=== PATIENT | male | born 1940 | race Caucasian/White ===

== ENCOUNTER 2019-02-04 09:48 | Day surgery (SDC) | payer MEDICARE, OTHER, SELFPAY ==
[2019-02-04] MEDS: PROPARACAINE 0.5% OPHTH SOL 2 DROPS EYE-OP (10:55)
[2019-02-04] MEDS: CATARACT EYE COMPOUND (10 DROPS/SYRINGE) 3 DROPS EYE-OP ×3 (10:57→11:18)
[2019-02-04 10:59] VITALS: BP 137/85; PULSE 63; RESP 16; TEMP 36.3; O2SAT 100
[2019-02-04 11:00] VITALS: BMI 40.1
--- NOTE | 2019-02-04 11:54 | PM.PREOP ---
Pre-operative Note Interval Note History & Physical reviewed/Exam performed by Physician: No Changes to H&P: No
--- NOTE | 2019-02-04 11:54 | PM.OP.1 ---
Operative Date/Time/Diagnoses Pre-op diagnosis: Nuclear cataract right eye Procedure & Clinicians Procedure: Cataract Surgery Same procedure as scheduled: Yes Surgeon: Chris Chavez Anesthesia Type: MAC +/- and Sedation Operative Notes Procedure in detail: Patient brought to the operating suite. Tetracaine drops placed in the right eye. Patient was prepped and draped in sterile manner. Wire lid speculum was placed in the eye. Betadine drops were placed on the eye. This was irrigated. Lidocaine jelly was placed on the eye. A paracentesis port was created with a side-port blade. 0.1 mL 1% preservative free lidocaine was injected into the anterior chamber. The anterior chamber was deepened with viscoelastic. 2.6 mm keratome was used to create a temporal clear corneal incision. Cystotome and Utrata forceps were used to create continuous tear capsulorrhexis. Balanced salt solution was used to hydro dissect the nucleus. The phacoemulsification handpiece was inserted and the nucleus was removed using the stop and chop technique. The irrigation aspiration handpiece was inserted and the remaining cortex was removed. Anterior chamber was deepened with viscoelastic. An Howard ZCB00 intraocular lens with a power of 19.0 was injected into the capsular bag. Irrigation aspiration handpiece was inserted and the remaining viscoelastic was removed. Incision was hydrated with balanced salt solution and found to be leak free with pressure with Weck-Sera sponges. 0.1 mL Vigamox injected anterior chamber. 0.3 mL Kenalog 10 mg was injected subconjunctivally. Lid speculum was removed. The patient left the operating room in excellent condition. Complications: none Condition: stable Disposition: same day surgery
[2019-02-04] MEDS: CHONDROIDTIN/SOD HYALURONATE 1.05 ML SYRINGE INTRAOCULA (12:19)
[2019-02-04] MEDS: TRIAMCINOLONE 50 MG/5 ML VIAL INJ (12:19)
[2019-02-04] MEDS: LIDOCAINE JELLY 2% 5 ML 1 APPLIC TOP (12:19)
[2019-02-04] MEDS: PHENYLEPHRINE/LIDOCAINE VIAL (OR) 0.2 ML EYE-OP (12:19)
[2019-02-04] MEDS: MOXIFLOXACIN OPHTH DROPS 3 ML BOTTLE 2 DROPS INJ (12:19)
[2019-02-04] MEDS: TETRACAINE 0.5% OPHTH DROPS 4 ML 2 DROPS EYE-OP (12:20)
[2019-02-04] MEDS: BALANCED SALT IRRIG SOLN NO.2 500 ML, EPINEPHrine 1 MG IRR (12:20)
[2019-02-04 12:28] VITALS: BP 121/76; PULSE 54; RESP 15; TEMP 36.4; O2SAT 100
[2019-02-04 12:55] VITALS: BP 132/77; PULSE 62; RESP 17; TEMP 36.4; O2SAT 99
--- NOTE | 2019-02-04 13:11 | SUR.PHASEII ---
INSTRUCTIONS REVIEWED WITH PT WITH VERBALIZED UNDERSTABDING, PT TOLERATING COFFEE, GAIT STEADY
== END 2019-02-04 13:03 ==
LOC: OR 09:51
PROVIDERS: PCP Student in an Organized Health Care Education/Training Program; Visit Provider Ophthalmology
DX: H25.11 Age-related nuclear cataract, right eye (principal); I48.91 Unspecified atrial fibrillation; E78.5 Hyperlipidemia, unspecified
CPT/HCPCS: J0171; J2250; J3010; J3301

== ENCOUNTER 2019-02-25 09:59 | Day surgery (SDC) | payer MEDICARE, OTHER, SELFPAY ==
[2019-02-25] MEDS: PROPARACAINE 0.5% OPHTH SOL 2 DROPS EYE-OP (10:52)
[2019-02-25] MEDS: CATARACT EYE COMPOUND (10 DROPS/SYRINGE) 3 DROPS EYE-OP (10:59)
[2019-02-25 11:02] VITALS: BP 139/88; PULSE 63; RESP 20; TEMP 36.1; O2SAT 98; BMI 40.1
--- NOTE | 2019-02-25 12:10 | PM.PREOP ---
Pre-operative Note Interval Note History & Physical reviewed/Exam performed by Physician: No Changes to H&P: No
--- NOTE | 2019-02-25 12:10 | PM.OP.1 ---
Operative Date/Time/Diagnoses Pre-op diagnosis: Nuclear Cataract Left eye Post-op diagnosis: same Procedure & Clinicians Surgeon: Chris Chavez Anesthesia Type: MAC +/- and Sedation Operative Notes Procedure in detail: Patient brought to the operating suite. Tetracaine drops placed in the left eye. Patient was prepped and draped in sterile manner. Wire lid speculum was placed in the eye. Betadine drops were placed on the eye. This was irrigated. Lidocaine jelly was placed on the eye. A paracentesis port was created with a side-port blade. 0.1 mL 1% preservative free lidocaine was injected into the anterior chamber. The anterior chamber was deepened with viscoelastic. 2.6 mm keratome was used to create a temporal clear corneal incision. Cystotome and Utrata forceps were used to create continuous tear capsulorrhexis. Balanced salt solution was used to hydro dissect the nucleus. The phacoemulsification handpiece was inserted and the nucleus was removed using the stop and chop technique. The irrigation aspiration handpiece was inserted and the remaining cortex was removed. During cleaning of posterior capsule a perfect round hole was created. This did not extend and no vitreous presented. Anterior chamber was deepened with viscoelastic. An Howard ZCB00 intraocular lens with a power of 18.0 was injected into the capsular bag. Irrigation aspiration handpiece was inserted and the remaining viscoelastic was removed. The hole did not extend and there was no vitreous. Incision was hydrated with balanced salt solution and found to be leak free with pressure with Weck-Sera sponges. 0.1 mL Vigamox injected anterior chamber. 0.3 mL Kenalog 10 mg was injected subconjunctivally. Lid speculum was removed. The patient left the operating room in excellent condition. Complications: none Condition: stable Disposition: same day surgery
[2019-02-25] MEDS: CHONDROIDTIN/SOD HYALURONATE 1.05 ML SYRINGE INTRAOCULA (12:29)
[2019-02-25] MEDS: LIDOCAINE JELLY 2% 5 ML 1 APPLIC TOP (12:30)
[2019-02-25] MEDS: MOXIFLOXACIN OPHTH DROPS 3 ML BOTTLE 2 DROPS INJ (12:30)
[2019-02-25] MEDS: PHENYLEPHRINE/LIDOCAINE VIAL (OR) 0.2 ML EYE-OP (12:30)
[2019-02-25] MEDS: TETRACAINE 0.5% OPHTH DROPS 4 ML 2 DROPS EYE-OP (12:30)
[2019-02-25] MEDS: BALANCED SALT IRRIG SOLN NO.2 500 ML, EPINEPHrine 1 MG IRR (12:31)
[2019-02-25] MEDS: TRIAMCINOLONE 50 MG/5 ML VIAL INJ (12:31)
[2019-02-25 12:41] VITALS: BP 135/93; PULSE 61; RESP 18; TEMP 36.2; O2SAT 99
[2019-02-25 12:55] VITALS: BP 114/75; PULSE 57; RESP 16; O2SAT 98
--- NOTE | 2019-02-25 13:02 | SUR.PHASEII ---
pt states he feels dizzy and I am going to let him sit here and get another set of vital signs on him to make sure he feels better.
[2019-02-25 13:12] VITALS: BP 117/82; PULSE 58; RESP 18; O2SAT 96
== END 2019-02-25 13:21 ==
LOC: OR 10:04
PROVIDERS: PCP Student in an Organized Health Care Education/Training Program; Visit Provider Ophthalmology
PROC: (CPT 66984; principal; 2019-02-25 12:45)
DX: H25.12 Age-related nuclear cataract, left eye (principal); I48.91 Unspecified atrial fibrillation; E78.5 Hyperlipidemia, unspecified
CPT/HCPCS: 66984; J0171; J2250; J3010; J3301

== ENCOUNTER → 2019-03-26 12:20 | Outpatient (CLI) | payer MEDICARE, OTHER, SELFPAY ==
--- NOTE | 2019-03-27 08:43 | PM.TREADMILL ---
Cardiac Stress Test Report Referral & Results Date Patient Seen: 03/27/19 Time Patient Seen: 08:30 Requesting provider: Anson Fragoso Indication: Dyspnea on exertion Rest ECG: NSR Procedure Note: After both written and verbal informed consent the patient had an IV started by the diagnostic imaging RN and then was hooked up to the treadmill monitoring system. The patient was placed on the treadmill at 1 mile an hour with no elevation and was then injected with the Sharla scan material. The Cardiolite was then immediately administered. He only tolerated about a minute on the treadmill before having to stop. We returned him to the [facility] in the supine position. The patient had a normal response to all infused materials. HR/BP targets met Impression: Completed Sharla protocol. Will await perfusion imaging. Please note: Actual ECG tracings can be found in the PACS system.
--- NOTE | 2019-03-28 06:07 | DI.NM.S_ITS ---
DATE OF SERVICE: 03/27/2019 PROCEDURE PERFORMED: Exercise treadmill converted to pharmacologic vasodilator stress and rest myocardial perfusion imaging study with gating to assess ejection fraction and regional wall motion. ORDERING PROVIDER: Anson Fragoso MD INDICATIONS: The patient is an obese 78-year-old male with exertional dyspnea and syncope. CARDIAC STRESS: The patient was initially stressed on the treadmill but was able to walk for less than 1 minute, unable to keep up with the treadmill. He was therefore changed to a pharmacologic study with the injection of 0.4 mg of regadenoson. With this, he had a normal hemodynamic response. No chest pain was reported. His resting ECG shows probable underlying atrial fibrillation with low-voltage QRS and an incomplete RBBB with nonspecific ST segment abnormalities. With pharmacologic stress, there are no significant ST segment shifts or other arrhythmias. His heart rate at baseline was 55 bpm and reached a maximum of 80 bpm (56% of his predicted maximum). The day prior, he was injected with 24.6 mCi of technetium-99 Myoview and was imaged 30 minutes later for resting images. Following regadenoson injection, he was injected with 25.7 mCi of technetium-99 Myoview and was imaged 15 minutes later using a gated SPECT imaging protocol. FINDINGS: 1. Raw data: There is fairly poor image quality due to patient body habitus with clear attenuation artifact noted. Lung-heart ratio is normal at 0.39, with a normal TID ratio of 0.86. 2. Quantitated gated SPECT: Post stress ejection fraction is estimated at 66% without any focal wall motion abnormality and specifically the apex appears to have normal contractility although the image quality on both the stress and resting images is quite poor. Resting ejection fraction was 72% but visually appears unchanged from the post-stress images. Resting end-diastolic volume was mildly increased at 153 ml. 3. Myocardial perfusion imaging: Post-stress supine images show a fairly normal myocardial perfusion pattern but with a mild defect in the distal left ventricle, particularly the distal anterior apex and inferolateral apex. The anterior septal defect resolves on prone imaging while the distal inferolateral defect appears to persist to a slight degree although shifted somewhat medially, suggesting differential positioning. The resting images show a slightly more uniform pattern or tracer activity with some improvement in the apex and particularly in the distal inferolateral segment, although this is nonspecific given the marginal image quality. IMPRESSION: 1. Probable normal myocardial perfusion study although with significantly reduced sensitivity and specificity because of significant attenuation artifact with resultant poor image quality. 2. Small, mild reversible perfusion defects in the distal anterior septum and distal inferolateral wall, the former completely resolving on prone imaging while the latter persisting to some degree although shifting somewhat medially, suggestive of attenuation artifact, although this defect resolves on the resting images and thus could reflect a small volume of ischemia although, again, specificity is low. There are no large areas of myocardial ischemia identified. 3. Probable normal LV systolic function without obvious focal wall motion abnormality. 4. Very poor exercise capacity but no angina or ECG evidence of ischemia with underlying atrial fibrillation and a somewhat blunted heart rate response to exercise but no other arrhythmias. Cullen Dumont - RS/sumanth/kv doc#: [id number]/job#: [id number] dd: 03/27/2019 12:35:00 dt: 03/28/2019 05:51:00 DICTATING /COPIES TO: Cullen Andrade MD ; Anson Fragoso MD COPIES MNE: DAWN JEAN
== END ==
PROVIDERS: PCP Student in an Organized Health Care Education/Training Program; Visit Provider Student in an Organized Health Care Education/Training Program
DX: R06.09 Other forms of dyspnea (principal); R55 Syncope and collapse; E66.9 Obesity, unspecified
CPT/HCPCS: 78452; 93016; 93017; 93018; A9502; J2785

== ENCOUNTER 2019-09-23 12:24 | Outpatient (CLI) | payer MEDICARE, OTHER, SELFPAY ==
[2019-09-23] VITALS (9 sets, daily range): BP systolic 118–170; BP diastolic 42–83; PULSE 56–71; RESP 16–18; TEMP 36.3; O2SAT 94–99
--- NOTE | 2019-09-23 12:26 | DI.RAD.S_ITS ---
PROCEDURE: PAIN L/S FACET INJ/BLK 1ST LOIDA COMPARISON: None. INDICATIONS: SPONDYLOSIS FINDINGS: 6 intraoperative fluoroscopy images demonstrate placement of needle at L2-L3 and L3-L4 facet joint bilaterally. IMPRESSION: Fluoroscopy for pain management. Dictated by: Nasrin Morales M.D. on 09/23/2019 at 15:12 Approved by: Nasrin Morales M.D. on 09/23/2019 at 15:12
[2019-09-23] MEDS: fentaNYL 100 MCG/2 ML INJ 50 MCG IV (14:16)
[2019-09-23] MEDS: MIDAZOLAM 5 MG/5 ML VIAL IV (14:16)
[2019-09-23] MEDS: BETAMETHASONE 30 MG/5 ML MDV 12 MG INJ (14:22)
[2019-09-23] MEDS: IOPAMIDOL 15 ML VIAL 3 ML INJ (14:22)
[2019-09-23] MEDS: BUPIVACAINE 0.5% (PF) VIAL 2 ML INJ (14:23)
[2019-09-23] MEDS: LIDOCAINE 1% 20 ML 10 ML INJ (14:27)
--- NOTE | 2019-09-23 14:28 | PC.NURSE ---
ASSISTING PT OFF TABLE AND TRANSPORTING PT TO POST PROC AREA IN STABLE CONDITION. PASSING RN CARE OF PT TO JUAQUIN Lawson RN.
--- NOTE | 2019-09-23 14:37 | P.PCN_ITS ---
Procedures Date/Time Date of procedure: 09/23/19 Time of procedure: 14:37 General Procedure description: PREOP DIAGNOSIS 1. FACET ARTHROPATHY 2. AXIAL LBP 3. MULTILEVEL DDD POST OP DIAGNOSIS 1. FACET ARTHROPATHY 2. AXIAL LBP 3. MULTILEVEL DDD PROCEDURES 1. FLUORSCOPICALLY GUIDED CONTRAST CONTROLLED FACET JOINT INJECTIONS BILATERAL L3/4, L4/5 PHYSICIAN: Cullen La DO INDICATIONS: Cullen is referred by Dr. Fragoso for treatment of Axial LBP FINDINGS Multilevel Facet Arthropathy with Clinically significant axial LBP DESCRIPTION OF PROCEDURE Fluoroscopically guided, contrast-controlled bilateral L3/4, L4/5 facet joint injections. Following review of allergy and review of potential side effects and complications, including, but not necessarily limited to, infection, allergic reaction, local tissue breakdown, stroke, temporary or permanent nerve injury, paralysis, and possible , the patient indicated that the patient understood and agreed to proceed. An informed consent document was signed by the patient, witnessed by a nurse, and placed in the patient's chart. Additionally, other treatment options including medications, modalities, and physical therapy were reviewed with the patient. After review of previous anaesthesic history and IV conscious sedation the patient was deemed safe to proceed with todays procedure with IV conscious sedation as ASA class II designation. Safety time-out was performed to confirm patient ID, procedure to be performed and site of procedure. IV sedation was accomplished with a combination of 3mg of Versed and 50mcg of Fentanyl was administered by the RN after DO order, titrated to patient comfort during the course of the procedure while the patient remained responsive to all verbal commands. In the prone position, following sterile prep and drape of the lumbar region, the posterior aspect of the L3/4, L4/5 facet joints were identified fluoroscopically. The skin was anesthetized via a 25-gauge 1.5-inch needle with 1% lidocaine solution into the corresponding facet joints. At this point, a 22- gauge 3.5-inch spinal needle was atraumatically introduced and advanced under fluoroscopic guidance into the corresponding facet joints. Following negative aspiration, injections of approximately 0.2-cc of Isovue 200 confirmed interarticular placement without vascular uptake. The identical procedure was then performed at the L3/4, L4/5 facet joints on the left. Radiological data, including multiple fluoroscopic views of the lumbosacral spine, reveal a spinal needle at the L3/4, L4/5 facet joints bilaterally. Subsequent views show flow of contrast material both superiorly and inferiorly within the joint space without vascular or intrathecal uptake. At this point, a total of 0.5cc including a mixture of 0.25cc Marcaine and 0.25cc betamethasone was injected without complication into each of the corresponding facet joints. The patient tolerated the procedure well without signs or symptoms of complications prior to transfer to the recovery area continued monitoring without incident. The patient was then transferred to the recovery area where they were observed for an appropriate period of time after the injection. The patient reported a VAS score of 7 prior to the procedure and a post-procedure VAS of 0. Total Fluoroscopy Time: 20.3 seconds Total Conscious Sedation Time: 24min POST OP INSTRUCTIONS The patient was provided a Pain Log to continue to record their response to the target-specific procedure prior to follow-up visit with their referring physician. Additionally, specific post-injection care instructions and a contact number to our office were provided if concerns arise regarding possible complications associated with the procedure are suspected. Cullen La DO Complications: none
--- NOTE | 2019-09-23 15:15 | PC.NURSE ---
Discharge note: Patient arrived awake and slightly drowsy. Handoff report received from Demar Benton RN. VSS, O2 Sat WNL. Denies any unusual numbness or tingling to lower extremities. Discharge instructions given and explained with good understanding. Taxi to [employer]. Will drive home to [place] tomorrow.
--- NOTE | 2019-09-23 17:18 | PC.NURSE ---
VERSED AND FENTANYL PREPARED AND ADMINISTERED BY THIS RN. ALL OTHER MEDS PREPARED AND ADMINISTERED BY DR. COOK.
== END 2019-09-23 15:10 | disposition home or self-care (01) ==
LOC: RAD 12:25
PROVIDERS: PCP Student in an Organized Health Care Education/Training Program; Visit Provider Physical Medicine & Rehabilitation
DX: M47.816 Spondylosis without myelopathy or radiculopathy, lumbar region (principal); M54.5 Low back pain; M51.36 Other intervertebral disc degeneration, lumbar region
CPT/HCPCS: 64493; 64494; 99152; J0702; J2250; J3010

== ENCOUNTER → 2021-03-24 11:27 | Outpatient (CLI) | payer MEDICARE, OTHER, SELFPAY ==
--- NOTE | 2021-03-24 | DI.MRI.S_ITS ---
PROCEDURE: MR LUMBAR SPINE WO CON INDICATIONS: Spinal stenosis, lumbar region without neurogenic TECHNIQUE: Noncontrast sagittal T1 spin echo and T2 fast echo, sagittal STIR, axial T1 and T2 fast spin echo through the lumbar spine. In cases with scoliosis, additional coronal T2 fast spin echo may be performed. COMPARISON: Outside Facility, RG, MRI L-SPINE W/O CONTRAST, 06/28/2019, 15:40. FINDINGS: Image quality: Excellent. Alignment and Curvature: Lumbar dextroscoliosis centered at L3 is similar to the prior study. No listhesis. Vertebral body heights maintained. Bone Marrow: Mild periarticular bone marrow and soft tissue edema adjacent to the facets at L4-L5 and L5-S1. No suspicious focal marrow signal abnormality or bone marrow edema otherwise. Spinal Cord: Normal position and appearance of the conus. Regional Soft Tissues: Prevertebral and paraspinous soft tissues are within normal limits. T12-L1: No spinal canal or neural foraminal stenosis. L1-L2: No spinal canal or neural foraminal stenosis. L2-L3: Disc bulge flattens the ventral thecal sac without mass effect upon the descending L3 nerve roots. Foraminal components of the disc bulge and facet hypertrophy combine to produce moderate right and mild left neural foraminal stenosis. L3-L4: Disc bulge flattens the ventral thecal sac without mass effect upon the traversing L4 nerve roots. Foraminal components of the disc bulge, posterior osteophytic ridging of the endplates, and facet hypertrophy combine to produce mild bilateral neural foraminal stenosis. L4-L5: Moderate spinal canal stenosis due to a combination of diffuse disc bulge, superimposed broad-based posterior disc protrusion, facet hypertrophy, and buckling of the ligamentum flavum. There is displacement and possible impingement upon the descending L5 nerve roots, left greater than right. Foraminal components of the disc bulge and facet hypertrophy contribute to moderate bilateral neural foraminal stenosis. There is abutment and possible flattening of the exiting left L4 nerve root along the undersurface by disc material. L5-S1: Diffuse disc bulge without mass effect upon the descending S1 nerve roots. Moderate bilateral neural foraminal stenosis with disc material abutting and perhaps flattening the exiting L5 nerve roots along the undersurfaces. IMPRESSION: Multilevel multifactorial degenerative changes, most pronounced at L4-L5 and L5-S1. Correlate for any corresponding radicular symptoms. Dictated by: Joe Bloom M.D. on 03/24/2021 at 14:10 Approved by: Joe Bloom M.D. on 03/24/2021 at 14:20
== END ==
PROVIDERS: PCP Student in an Organized Health Care Education/Training Program; Referring Provider Student in an Organized Health Care Education/Training Program; Visit Provider Student in an Organized Health Care Education/Training Program
DX: M48.061 Spinal stenosis, lumbar region without neurogenic claudication (principal); M47.816 Spondylosis without myelopathy or radiculopathy, lumbar region; M47.817 Spondylosis without myelopathy or radiculopathy, lumbosacral region
CPT/HCPCS: 72148